=== PATIENT | female | born 1995 | race Caucasian/White ===

== ENCOUNTER 2022-12-15 02:34 | Outpatient (CLI) | payer OTHER, SELFPAY ==
[2022-12-15 16:50] LABS: Panorama Kit Sent via Fed Ex
[2022-12-15 16:59] LABS: Abs Immature Grans 0.12 10^3/uL (0.0-0.06); Absolute Basophil Count 0.06 10^3/uL (0.0-0.2); Absolute Eosinophil Count 0.15 10^3/uL (0.0-0.7); Absolute Lymphocyte Count 2.47 10^3/uL (1.2-3.4); Absolute Monocyte Count 0.61 10^3/uL (0.1-0.8); Absolute Neutrophil Count 6.47 10^3/uL (1.2-6.7); Basophils % 0.6; Eosinophils % 1.5; HCT 39.4 % (36.0-46.0); HGB 13.2 g/dL (11.2-15.7); Immature Grans % 1.2; MCH 28.9 pg (27.0-33.0); MCHC 33.5 % (32.0-36.0); MCV 86 fL (80-95); MPV 9.8 fL (8.0-11.0); Monocytes % 6.2; Neutrophils % 65.5; Platelet Count 298 10^3/uL (130-400); RBC 4.57 10^6/uL (3.93-5.22); RDW 12.4 % (11.7-14.6); RDW-SD 38.7 fL; WBC 9.88 10^3/uL (4.4-10.8)
[2022-12-15 17:25] LABS: Glucose,1 Hr (Glucola) 117 mg/dL (80-140)
[2022-12-15 17:47] LABS: TSH (W/Ref FT4) 1.34 uIU/mL (0.36-3.74)
[2022-12-17 09:00] LABS: Hepatitis B Surface Ag Negative (Negative)
[2022-12-17 09:41] LABS: Hepatitis C Ab w Rflx HCV PCR Negative (Negative)
[2022-12-17 10:05] LABS: HIV-1/2 Ag & Ab Screen Negative (Negative)
[2022-12-18 16:14] LABS: Syphilis IgG w/Reflex Nonreactive (Nonreactive)
[2022-12-18 17:07] LABS: Varicella IgG Antibody Positive (See Note)
[2022-12-18 18:56] LABS: Rubella IgG Ab (UVM) Positive (See Note)
[2022-12-21 20:03] LABS: Specimen WB Whole Blood
[2023-01-06 17:01] LABS: Specimen WB Whole Blood
== END 2022-12-15 02:35 | disposition home or self-care (01) ==
LOC: LBO 02:35
PROVIDERS: Visit Provider Advanced Practice Midwife
DX: Z34.01 Encounter for supervision of normal first pregnancy, first trimester
CPT/HCPCS: 36415; 81220; 81222; 81329; 82950; 86787; 86803; 86850; 86900; 86901; 87340; 87389; 84443; 85025; 86762; 86780

== ENCOUNTER 2022-12-15 16:12 | Outpatient (REF) | payer OTHER, SELFPAY ==
[2022-12-15 17:29] LABS: *AMPHETAMINES SCREEN URINE Negative (Negative); *BARBITURATES SCREEN URINE Negative (Negative); *BENZODIAZEPINES SCREEN URINE Negative (Negative); Cannabinoids THC Negative (Negative); Cocaine Screen,Urine Negative (Negative); METHADONE URINE SCREEN Negative (Negative); OPIATES URINE SCREEN Negative (Negative)
[2022-12-15 17:30] LABS: Tricyclic Antidepressants Negative (Negative)
[2022-12-17 15:22] LABS: Chlamydia Result Negative (Negative); GC Result Negative (Negative)
[2023-01-01 09:29] LABS: Buprenorphine Negative ng/mL (Cutoff: 5.0); Norbuprenorphine Negative ng/mL (Cutoff: 2.5)
== END 2022-12-15 16:13 | disposition home or self-care (01) ==
LOC: LBN 16:12
PROVIDERS: Visit Provider Advanced Practice Midwife
DX: Z34.91 Encounter for supervision of normal pregnancy, unspecified, first trimester (principal); Z3A.11 11 weeks gestation of pregnancy; Z11.3 Encounter for screening for infections with a predominantly sexual mode of transmission
CPT/HCPCS: 80307; 80348; 87491; 87591; 87086

== ENCOUNTER 2023-02-08 03:31 | Outpatient (CLI) | payer OTHER, SELFPAY ==
--- NOTE | 2023-02-08 08:00 | DI.US_ITS ---
Exam(s) US OB 2-3 TRIMESTER W MOD EXAM: US OB 2-3 TRIMESTER W MOD CLINICAL HISTORY: ,Z34.90. TECHNIQUE: Transabdominal obstetrical ultrasound performed. COMPARISON: US POCUS EXAM from 11/23/2022 FINDINGS: Number of fetuses: One. position: Variable Placental grade: 1 Placental location: Anterior. No evidence of previa. BIOMETRIC DATA: BPD: 45mm = 19+ 4 weeks HC: 172mm = 19+ 5 weeks AC: 149mm = 20+ 1 weeks FL: 33mm = 20+ 1 weeks Cisterna Magna: Not visualized mm Cerebellum: Not visualized cm EFW: 331 grms 88% Composite Age: 19 6 weeks EDC by US: 29 June 2023 Heart Rate: 154BPM Amniotic fluid : Amount of fluid is within normal limits. ANATOMICAL SURVEY: Four-chambered heart: Unremarkable. LVOT: Unremarkable. RVOT: Unremarkable. Left-sided stomach: Unremarkable. urinary bladder: Unremarkable. Bilateral kidneys: Unremarkable. Three-vessel cord: Unremarkable. Cord insertion: Unremarkable. Posterior fossa:Unre not well seen. ventricles: Unremarkable. nose: Unremarkable. lips: Unremarkable. palate: Unremarkable. spine: Unremarkable. Two arms and two legs: Unremarkable. IMPRESSION: 1. Single live intrauterine gestation as above. 2. Normal anatomic survey. 3. Posterior fossa was not well seen. The patient is scheduled to return for additional imaging 2022. DATA REPOSITORY:
== END 2023-02-08 03:51 ==
PROVIDERS: Visit Provider Advanced Practice Midwife
DX: Z34.92 Encounter for supervision of normal pregnancy, unspecified, second trimester (principal)
CPT/HCPCS: 76805